=== PATIENT | male | born 1985 | race Asian ===

== ENCOUNTER → 2017-05-13 | Outpatient (CLI) | payer OTHER ==
[~2017-05-13] MED LIST: VITACAP26 PO; VITAMIN B PO; VITBC PO
== END | disposition home or self-care (01) ==
LOC: C.RDSM 08:00
PROVIDERS: ATTEND Orthopaedic Surgery Sports Medicine
DX: S62.639A Displaced fracture of distal phalanx of unspecified finger, initial encounter for closed fracture (principal); X58.XXXA Exposure to other specified factors, initial encounter

== ENCOUNTER → 2017-05-19 | Day surgery (SDC) | payer OTHER ==
[2017-05-15 13:05] VITALS: Ht 172.7 cm; Wt 68.2 kg
[~2017-05-19] VITALS: Ht 172.7 cm; Wt 68.2 kg
[~2017-05-19] MED LIST changes: +ATROPINE SULFATE 0.1 MG/ML 5ML SYR IV PRN; +BUPIVACAINE/EPINEPHRINE 0.5% MPF 1:200,000 30 ML VIAL ONE; +CEFAZOLIN 1000MG IV PUSH 7.5 ML IV SCH; +EpHEDrine SULFATE INJ 50 MG/ML AMP IV PRN; +EpHEDrine SULFATE INJ 50 MG/ML AMP ONE; +FENTANYL CITRATE INJ 50 MCG/1 ML 2 ML VIAL ONE; +FLUMAZENIL 0.1 MG/1 ML 10 ML VIAL IV PRN; +HYDROmorphone INJ 0.5 MG/0.5 ML SYR IV PRN; +LACTATED RINGER'S 1000ML 1,000 ML IV SCH; +LIDOCAINE HCL 1% 20 ML VIAL ONE; +LIDOCAINE HCL 2% 2 ML VIAL (20MG/ML) ONE; +MIDAZOLAM HCL 1 MG/ML 2ML VIAL ONE; +MoRPHine SULFATE 2 MG/ML CARP IV PRN; +MoRPHine SULFATE 4 MG/ML 1 ML CARP\\VIAL IV PRN; +NALOXONE HCL 0.4 MG/1 ML VIAL/CARP IV PRN; +ONDANSETRON INJ 2 MG/ML 2 ML VIAL IV PRN; +OXYCODONE/ACETAMINOPHEN 5-325 TAB PO PRN; +PROPOFOL IV EMULSION 10 MG/ML 20 ML VIAL IV ONE; +SODIUM CHLORIDE 0.9% INJ 10 ML VIAL ONE; -VITAMIN B PO
--- NOTE | 2017-05-19 06:51 | History & Physical Bridge - [place] ---
H&P Re-Evaluation Bridge Note: I have examined the patient, reviewed the History & Physical and in the interval since the performance of the History & Physical I have noted the following changes of clinical significance: No changes noted
--- NOTE | 2017-05-19 08:48 | [facility] Post Operative Brief Note ---
Immediate Operative Summary Operative Date May 19, 2017. Pre-Operative Diagnosis Left Ring Finger Fracture Post-Operative Diagnosis same Procedure(s) Performed Left Ring Finger Open Reduction Internal Fixation Surgeon Dr. Elian Valdez Service Supervisor Surgeon(s) Alexi Quijano MD Estimated Blood Loss 3cc Findings Consistent with Post-Op Diagnosis Fluids (cc crystalloids) 1200 Specimens none Drains None Anesthesia Type MAC Complication(s) none Disposition Disposition: Recovery Room / PACU (Stable)
--- NOTE | 2017-05-19 08:50 | [facility] Operative Report ---
Operative Report Operative Date May 19, 2017. Pre-Operative Diagnosis Left Ring Finger Fracture Post-Operative Diagnosis same Procedure(s) Performed Left Ring Finger Open Reduction Internal Fixation Surgeon Dr. Elian Valdez Janitor Custodian Surgeon(s) Alexi Quijano MD Estimated Blood Loss 3cc Findings Displaced left Ring finger distal phalanx fracture. Fluids 1200 Specimens none Drains None Anesthesia Type MAC Complication(s) none Disposition Recovery Room / PACU (Stable) Indications The patient is a 31 year old male with a displaced left ring finger distal phalanx fracture that lost its reduction with conservative means, that I recommended surgical fixation. The patient understands the risks of surgery, which include but are not limited to: bleeding, infection, re-operation, damage to nerves and arteries, continued pain, progression of arthritis, mal-union, non -union, and stiffness. The patient understands all of these instructions and explanations, all of their questions have been satisfactorily addressed. The patient has elected to proceed with surgery and the informed consent was signed. Description of Procedure Implant: 0.035 K wire & Radha Armendariz PROCEDURE: The patient was taken to the Operating Room and placed in the supine position on the operating table. After sufficient sedation was administered a multidisciplinary time-out was performed identifying my initials on the left ring finger as the correct and operative limb. Prior to the incision being made , 1 gram of intravenous Ancef were given. The left upper extremity was prepped and draped in the usual orthopaedic sterile fashion. The planned incision over the palmar pad of the left ring finger distal phalanx was marked and was then injected with 3 cc of a 50:50 mix of 1% Lidocaine plain and 0.5% Bupivacaine plain in addition a digital nerve block was performed using another 5cc of the above mixture. A finger tourniquet was placed. After a failed attempt to reduce the fragments closed, there was no significant movement of the displaced fragments. The planned incision was carried down through the skin and fat to the distal phalanx. The fracture site was easily identified. The fracture was debrided of fibrous tissue with curettes, rongeur , and irrigation. The two fragments were reduced manually, using towel clip, and placing a K wire from palmar to dorsal. An attempt was made to place 2 parallel K wires however there was insufficient space. Ultimately, the fragment was held reduced and a single K wire was placed percutaneous from the palmar incision transversing both fragments and the DIP joint into the middle phalanx shaft. Reduction of the fracture was confirmed by Fluoro, as well as the placement of the K-wire, final Fluoro images were obtained showing near anatomic reduction with good placement of the hardware. The wound was copiously irrigated. The K wire was cut short and a Jurgan ball was placed overtop The skin was closed with 4-0 Nylon. The wound was dressed with Xeroform gauze, sterile gauze, sterile Norbert, and AlumaFoam splint was placed and covered with 1 inch Coban. The sponge and needle counts were correct. He was taken to the recovery room in stable condition. Post-op Instructions: Pain medicine prescription was given pre-operatively to be taken as needed. The patient will follow up with me in 10-15 days. Plan removal of the K wire in the office in 4 weeks. I attest to the content of the Intraoperative Record and any orders documented therein. Any exceptions are noted below.
--- NOTE | 2017-05-19 08:54 | Discharge Instructions-SurgCtr ---
Discharge Instructions Date of Service May 19, 2017. Visit Reason for Visit: Left Ring Finger Fracture Discharge Discharge Diagnosis / Problem: Status post Open Reduction Pinning Left Ring Finger Fracture Discharge Goals Goal(s): Decrease discomfort, Improve function Activity Recommendations Activity Limitations: per Instructions/Follow-up section (No more than cup of coffee) May Resume Sexual Activity: when tolerated Shower/Bathe: may shower/bathe in 3 days Driving or Machine Use: Not while on Narcotics Anesthesia . Post Anesthesia Instructions: If you have had General Anesthesia or IV Sedation: * Do not drive today. * Resume driving when surgeon permits. * Do not make important decisions or sign legal documents today. * Call surgeon for: 1. Temperature elevations greater than 101 degrees F. 2. Uncontrollable pain. 3. Excessive bleeding. 4. Persistent nausea and vomiting. 5. Medication intolerance (nausea, vomiting or rash). * For nausea and vomiting use only clear liquids such as: tea, soda, bouillon until nausea subsides, then gradually increase diet as tolerated. * If you have any concerns or questions, call your surgeon's office. If physician is unavailable and it is an emergency, call 911 or go to the nearest emergency room. . Instructions / Follow-Up Instructions / Follow-Up Dr. Valdez in 10-15 days. Diet Recommendations Home Diet: resume previous diet Procedures Procedures Performed: Left Ring Finger Open Reduction Internal Fixation Pending Studies Studies pending at discharge: no School Instructions Return To School: time frame (Within 1-3 days) Medical Emergencies . Who to Call and When: Medical Emergencies: If at any time you feel your situation is an emergency, please call 911 immediately. . Non-Emergent Contact Non-Emergency issues call your: Surgeon Call Non-Emergent contact if: temperature is above 101.5, your pain is not controlled, wound has increased drainage, wound has increased redness . . "Provider Documentation" section prepared by Arnie Valdez. .
[2017-05-19 09:06] VITALS: TEMP 36.4
--- NOTE | 2017-05-19 09:41 | Anesthesia Progress Nt - [facility] ---
Anesthesia Post Op Note Date & Time May 19, 2017 at 09:41 Vital Signs Pain Intensity: 0 Vital Signs Past 12 Hours Date Time Temp Pulse Resp B/P (MAP) Pulse Ox O2 Delivery O2 Flow Rate FiO2 05/19/17 09:06 36.4 74 18 115/74 (88) 98 Room Air 05/19/17 06:26 36.7 92 16 128/82 (97) 99 Room Air Notes Mental Status: alert / awake / arousable, participated in evaluation Pt Amnestic to Procedure: Yes Nausea / Vomiting: adequately controlled Pain: adequately controlled Airway Patency, RR, SpO2: stable & adequate BP & HR: stable & adequate Hydration State: stable & adequate Anesthetic Complications: no major complications apparent
[2017-05-19 10:20] VITALS: BP 119/78; PULSE 88; O2SAT 97
== END | disposition home or self-care (01) ==
LOC: X.SURG 06:05
PROVIDERS: ATTEND Orthopaedic Surgery Sports Medicine
DX: S62.635A Displaced fracture of distal phalanx of left ring finger, initial encounter for closed fracture (principal); X58.XXXA Exposure to other specified factors, initial encounter

== ENCOUNTER → 2017-06-18 | Outpatient (CLI) | payer OTHER ==
[~2017-06-18] MED LIST changes: -ATROPINE SULFATE 0.1 MG/ML 5ML SYR IV PRN; -BUPIVACAINE/EPINEPHRINE 0.5% MPF 1:200,000 30 ML VIAL ONE; -CEFAZOLIN 1000MG IV PUSH 7.5 ML IV SCH; -EpHEDrine SULFATE INJ 50 MG/ML AMP IV PRN; -EpHEDrine SULFATE INJ 50 MG/ML AMP ONE; -FENTANYL CITRATE INJ 50 MCG/1 ML 2 ML VIAL ONE; -FLUMAZENIL 0.1 MG/1 ML 10 ML VIAL IV PRN; -HYDROmorphone INJ 0.5 MG/0.5 ML SYR IV PRN; -LACTATED RINGER'S 1000ML 1,000 ML IV SCH; -LIDOCAINE HCL 1% 20 ML VIAL ONE; -LIDOCAINE HCL 2% 2 ML VIAL (20MG/ML) ONE; -MIDAZOLAM HCL 1 MG/ML 2ML VIAL ONE; -MoRPHine SULFATE 2 MG/ML CARP IV PRN; -MoRPHine SULFATE 4 MG/ML 1 ML CARP\\VIAL IV PRN; -NALOXONE HCL 0.4 MG/1 ML VIAL/CARP IV PRN; -ONDANSETRON INJ 2 MG/ML 2 ML VIAL IV PRN; -OXYCODONE/ACETAMINOPHEN 5-325 TAB PO PRN; -PROPOFOL IV EMULSION 10 MG/ML 20 ML VIAL IV ONE; -SODIUM CHLORIDE 0.9% INJ 10 ML VIAL ONE
--- NOTE | 2017-06-18 13:27 | DIAGNOSTIC IMAGING REPORT ---
L FINGER(S) MIN 2 VIEWS CLINICAL HISTORY: 31 years-old Male presenting with S/P ORIF LEFT 4TH FINGER. TECHNIQUE: Frontal, oblique, lateral views of the left fourth finger were obtained. COMPARISON: 05/13/2017. FINDINGS: There has been interval pin fixation across the obliquely oriented fracture of the diaphysis of the distal phalanx of the left fourth finger. Pin fixation also extends across the distal interphalangeal joint. Slight diastases at the dorsal aspect of the fracture plane with 1.3 mm of offset. Minimal apex dorsal angulation at the fracture site, which is reversed from the initial injury. No osseous erosion or significant soft tissue swelling. IMPRESSION: Status post pin fixation across the obliquely oriented diaphyseal fracture of the distal phalanx of the left fourth finger without significant complication. Improved alignment. Electronically signed by: Aston Ray M.D. 06/18/2017 1:26 PM Dictated Date/Time: 06/18/2017 1:24 PM
== END | disposition home or self-care (01) ==
LOC: C.RDSM 14:06
PROVIDERS: ATTEND Physician Assistant
DX: Z96.7 Presence of other bone and tendon implants (principal)

== ENCOUNTER → 2017-07-02 | Outpatient (CLI) | payer OTHER | END | disposition home or self-care (01) | LOC: C.RDSM 18:50 | PROVIDERS: ATTEND Orthopaedic Surgery Sports Medicine | DX: Z96.7 Presence of other bone and tendon implants (principal) ==

== ENCOUNTER → 2017-08-13 | Outpatient (CLI) | payer OTHER | END | disposition home or self-care (01) | LOC: C.RDSM 10:07 | PROVIDERS: ATTEND Orthopaedic Surgery Sports Medicine | DX: Z96.7 Presence of other bone and tendon implants (principal) ==